=== PATIENT | male | born 1995 | race Hispanic/Latino ===

== ENCOUNTER 2024-12-30 22:10 | Emergency (ER) | payer BC ==
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
[2024-12-30 23:33] VITALS: BP 148/84; TEMP 98; O2SAT 99
== END 2024-12-30 22:48 | disposition home or self-care (01) ==
LOC: ER 22:10
DX: F10.129 Alcohol abuse with intoxication, unspecified (principal)
CPT/HCPCS: 99283